=== PATIENT | female | born 1965 | race Asian ===

== ENCOUNTER 2018-12-20 12:21 | Day surgery (SDC) | payer OTHER ==
[~2018-12-20] VITALS: Ht 152.4 cm; Wt 56.3 kg
[2018-12-20 14:15] VITALS: Ht 152.4 cm; Wt 56.3 kg
[2018-12-20 15:21] VITALS: BP 175/109; PULSE 79; RESP 20
[2018-12-20] MEDS ORDERED: MIDAZOLAM 1 MG/ML 2 ML INJ ONE (15:28)
[2018-12-20] MEDS ORDERED: FENTAnyl 50 MCG/ML VIAL ONE (15:28)
[2018-12-20 15:35] VITALS: BP 139/91; RESP 14
== END 2018-12-20 15:59 | disposition home or self-care (01) ==
LOC: GIL 12:21
PROVIDERS: ATTEND Internal Medicine Gastroenterology
DX: Z12.11 Encounter for screening for malignant neoplasm of colon (principal); K64.8 Other hemorrhoids
CPT/HCPCS: 45378; J2250; J3010